=== PATIENT | female | born 1985 | race Caucasian/White ===

== ENCOUNTER 2020-01-21 11:37 | Emergency (ER) | payer OTHER, MEDICAID, SELFPAY ==
[2020-01-21 11:43] VITALS: BP 128/95; PULSE 88; RESP 12; TEMP 36.6; O2SAT 97
--- NOTE | 2020-01-21 11:45 | ED.EAR ---
HPI - Ear Problem <Radha Daley PA-C - Last Filed: 01/21/20 17:06> General Chief complaint: Ear Stated complaint: Excruciating pain in L ear Time Seen by Provider: 01/21/20 11:44 Source: patient Mode of arrival: Ambulatory Limitations: no limitations History of Present Illness HPI Narrative: This 34-year-old female comes to ED secondary to excruciating left ear pain onset early this morning, she has more mild right ear pain. She has a history of recurrent otitis media even as an adult. She states that she has had multiple ear surgeries. She states that for the last few days she has been working on pulling of carpet and cleaning and a new house, and has had some typical allergy symptoms with sinus drainage, watery burning eyes, runny nose. She thinks her ear may have been draining a little clear fluid earlier, noted on Q-tip. She has not had any fever, cough, dyspnea, known exposures. She states she came here because unable to get appointment with her PCP. She uses NuvaRing reliably and denies possibility of . Related Data Previous Rx's Medication Instructions Recorded amoxicillin-pot clavulanate 1 tab PO Q12H #20 tab 01/21/20 [Augmentin] ibuprofen 800 mg PO Q8H PRN #30 tab 01/21/20 Review of Systems <Radha Daley PA-C - Last Filed: 01/21/20 17:06> Review of Systems ROS Unobtainable: All systems reviewed & are unremarkable except as noted in HPI and below Patient History <Radha Daley PA-C - Last Filed: 01/21/20 17:06> Medical History Migraine headache (Chronic) Recurrent otitis media (Chronic) Surgical History History of tonsillectomy and adenoidectomy (Resolved) S/P ear surgery (Resolved) Social History Smoking Status: Never smoker Exam <Radha Daley PA-C - Last Filed: 01/21/20 17:06> Narrative Exam Narrative: GENERAL APPEARANCE: Patient resting, appears uncomfortable but in NAD HEAD: No sinus TTP. EYES: PERRL, EOMI. EARS: Normal auditory canals, TMS intact, right with dull light reflex, left retracted, erythematous ORAL CAVITY: Normal oropharynx THROAT: No erythema or exudate, PND noted NECK/THYROID: Neck supple, full range of motion, tender submandibular cervical lymphadenopathy. LUNGS: Clear to auscultation bilaterally, no cough on exam. HEART: RRR without murmur, nl S1, S2, no S3 or S4. Initial Vital Signs Initial Vital Signs: Vital Signs Temperature 97.9 F 01/21/20 11:43 Pulse Rate 88 01/21/20 11:43 Respiratory Rate 12 01/21/20 11:43 Blood Pressure 128/95 H 01/21/20 11:43 Pulse Oximetry 97 01/21/20 11:43 <Oscar Kennedy DO - Last Filed: 01/21/20 17:13> Initial Vital Signs Initial Vital Signs: Vital Signs Temperature 97.9 F 01/21/20 11:43 Pulse Rate 88 01/21/20 11:43 Respiratory Rate 12 01/21/20 11:43 Blood Pressure 128/95 H 01/21/20 11:43 Pulse Oximetry 97 01/21/20 11:43 Course <Radha Daley PA-C - Last Filed: 01/21/20 17:06> Vital Signs Vital signs: Vital Signs - 8 hr 01/21/20 11:43 Temperature 97.9 F Pulse Rate 88 Respiratory Rate 12 Blood Pressure 128/95 H Pulse Oximetry 97 <DO Watson Sr Last Filed: 01/21/20 17:13> Vital Signs Vital signs: Vital Signs - 8 hr 01/21/20 11:43 Temperature 97.9 F Pulse Rate 88 Respiratory Rate 12 Blood Pressure 128/95 H Pulse Oximetry 97 Discharge Plan Departure Patient Disposition: Home Clinical Impression: Otitis media Qualifiers: Otitis media type: unspecified Chronicity: acute Qualified Code(s): H66.90 - Otitis media, unspecified, unspecified ear Discharge Date/Time: 01/21/20 12:20 Instructions: Middle Ear Infection Activity Restrictions/Additional Instructions: Your left ear appears to be infected today, similar to your previous infections. These are often caused by viruses, however in patient like you have had multiple frequent bacterial infections, it is reasonable to treat with antibiotics so I have prescribed Augmentin for you as you have had in the past. Please start this as soon as you pick it up, along with ibuprofen every 8 hours as needed for pain. You can add Tylenol to this as needed. Return as we discussed if you have any acutely worsening symptoms or new symptoms such as high fever, breathing difficulties, hearing loss. Please follow-up with your PCP if this is not improving with antibiotics as expected. Prescriptions: New amoxicillin-pot clavulanate [Augmentin] 875-125 mg tablet 1 tab PO Q12H Qty: 20 RF: 0 ibuprofen 800 mg tablet 800 mg PO Q8H PRN (Reason: ear pain) Qty: 30 RF: 0 Referrals: Leonel Reed MD [Primary Care Provider] - ED Sign-out <Radha Daley PA-C - Last Filed: 01/21/20 17:06> Cosign ED Attending Eunice Attestation: I was immediately available in the department for consultation. This documentation has been reviewed and I agree with assessment and plan. Supervised by Radha Daley PA-C <Oscar Kennedy DO - Last Filed: 01/21/20 17:13> Cosign ED Attending Eunice Attestation: Dr Kennedy Co-Sign Statement: I was available for consultation during this patient's emergency department visit. This chart is signed by myself for administrative purposes only. I did not have direct contact with this patient during this visit. They were seen independently by the APC.
== END 2020-01-21 12:20 | disposition home or self-care (01) ==
LOC: ED 12:06
PROVIDERS: Emergency Provider Internal Medicine; PCP Family Medicine
DX: H66.90 Otitis media, unspecified, unspecified ear (principal)
CPT/HCPCS: 99281

== ENCOUNTER → 2020-07-25 09:19 | Outpatient (CLI) | payer OTHER, MEDICAID, SELFPAY ==
--- NOTE | 2020-07-25 | PATH_ITS ---
Note [facility] Accession Number: [id number] TESTS RESULT FLAG UNITS REF RANGE LAB Clinician Provided Cytology Information No. of containers..00 Previously Prepared Cytology Slide 35 Unknown Storage/container code(s) [A] 01 RIGHT MID THYROID NO DIAGNOSIS: [A] 01 RIGHT MID THYROID NODULE, FINE NEEDLE ASPIRATION. SUSPICIOUS FOR MALIGNANCY. SUSPICIOUS FOR PAPILLARY CARCINOMA, BETHESDA CATEGORY V, SEE COMMENT. COMMENT: EXAMINATION OF THE SMEARS REVEALS A MILDLY CELLULAR ASPIRATE (WITH AREAS OF THICK SMEAR PREPARATION) COMPOSED OF GROUPS OF ATYPICAL CELLS WITH NUCLEAR ENLARGEMENT, OVERLAPPING AND NUCLEAR MEMBRANE IRREGULARITIES (GROOVES) WITHOUT DEFINITE INTRANUCLEAR PSEUDOINCLUSIONS SEEN. THE CYTOMORPHOLOGIC FEATURES ARE SUSPICIOUS FOR PAPILLARY CARCINOMA. RESULTS WERE CALLED TO Jesús MILAN, ON 07/29/2020, AT 10:15 AM. Pathologist ICD10: 01 E04.1 01 Vanessa Wheat MD, Pathologist NPI- [id number] 01 Latrell Benson, [employer] Leak Tester ([facility]) 01 30 CC, PINK, CLEAR RECIEVED: IN CYTOLYT WITH 5 ALCOHOL FIXED AND 5 QUICK STAINED SLIDES ALSO 1 RNA VIAL WAS RECEIVED FOR FURTHER TESTING. /VDU 07/28/2020 1056 [facility] FLAG LEGEND: L-Low Normal,H-High Normal,LL-Alert Low,HH-Alert High <-Panic Low,>-Panic High,A-Abnormal,AA-Critical Abnormal Performed at: 01 =Z [facility] [address] [place] [address], [place] [address] Louis Franco MD, Performed at: [address] [place] [address], [place], [place] [id number] MD Louis Franco MD Phone: [phone]
--- NOTE | 2020-07-25 | DI.US.S_ITS ---
PROCEDURE: US FINE NEEDLE ASPIRATION INDICATIONS: FNA RIGHT THYROID NODULE TECHNIQUE: The indications, alternatives, benefits, risks, and complications of the procedure were explained to the patient. Written informed consent was obtained and placed in the chart. The thyroid region was examined sonographically and a site was chosen for ultrasound guided percutaneous sampling. The skin was prepared and draped in the usual fashion, and anesthetized with 1% lidocaine infiltrated from the skin down to the thyroid gland. Multiple passes were then performed, with contents emptied into an appropriate pathology specimen container. A bandage was applied to the area of access at completion of the study. COMPARISON: [facility], , US SOFT TISSUE HEAD OR NECK, 06/03/2020, 14:46. FINDINGS: Location(s) of lesion(s) sampled: 1.1 x 0.7 x 1.1 centimeter mid right thyroid nodule [place]: 25 gauge hypodermic needles. Number of passes: 5 Medications: 1% lidocaine for local anaesthesia. Complications: None. IMPRESSION: Successful ultrasound-guided thyroid nodule fine needle aspiration, with cytology results pending. Please see chart below for management recommendations based on cytology results. [place] [facility] ReportingRecommendationsNon-diagnostic* Repeat US-guided FNA, with on-site cytology evaluation if possible. * Repeated non-diagnostic nodules without high suspicion US features: close observation vs surgical consult. * Consider surgery if nodule has high suspicion US features, grows >20% in 2 dimensions on followup, or patient has clinical risk factors for malignancy. Benign* If nodule has high suspicion US features: repeat US and FNA within 12 months. * If nodule has low to intermediate suspicion US features: repeat US at 12-24 months. If nodule grows (20% increase in at least 2 dimensions, with minimal increase of 2 mm or >50% change in volume), or development of new suspicious US features, then repeat FNA or continue followup. * If nodule has very low suspicion US features: followup US at >24 months. Atypia of undetermined significance, follicular lesion of undetermined significanceRepeat FNA, molecular testing, followup US, or surgical consult.Follicular neoplasm, suspicious for follicular neoplasmSurgical consult; also consider molecular testing. Suspicious for malignancySurgical consult.MalignantSurgical consult. Dictated by: Caryl Bradley MD, PhD on 07/25/2020 at 11:53 Approved by: Caryl Bradley MD, PhD on 07/25/2020 at 11:54
== END ==
PROVIDERS: PCP Family Medicine; Referring Provider Family Medicine; Visit Provider Otolaryngology
DX: E04.1 Nontoxic single thyroid nodule (principal)
CPT/HCPCS: 10005

== ENCOUNTER → 2020-12-24 10:07 | Outpatient (CLI) | payer OTHER, MEDICAID, SELFPAY ==
[2020-12-24 11:19] LABS: COVID19 -Nasal RAPID Negative (Negative)
== END ==
PROVIDERS: PCP Family Medicine; Visit Provider Physician Assistant
DX: Z01.812 Encounter for preprocedural laboratory examination (principal); Z20.822 Contact with and (suspected) exposure to COVID-19
CPT/HCPCS: 87635

== ENCOUNTER 2020-12-25 06:47 | Day surgery (SDC) | payer OTHER, MEDICAID, SELFPAY ==
[2020-12-25] VITALS (9 sets, daily range): BP systolic 106–137; BP diastolic 73–92; PULSE 62–84; RESP 12–94; TEMP 36.3–37.1; O2SAT 12–96; BMI 26.2
--- NOTE | 2020-12-25 | PATH_ITS ---
[facility] Accession Number: [id number] . 01 Material submitted: . PART A: THYROID - RIGHT THYROID LOBE PART B: THYROID - LEFT THYROID LOBE . 02 Diagnosis: A. 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 Please see [facility] Cancer Case Summary below. . B. 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 Please see Cancer Case Summary below. . CANCER CASE SUMMARY - THYROID GLAND . Procedure: Right lobectomy and left lobectomy. Tumor focality: Multiple foci. Tumor site: Right lobe, left lobe. Tumor size: 1.1 cm, Right mid lobe 0.6 mm, Right upper lobe less than 0.5 mm, Left mid lobe Histologic type: Papillary carcinoma, conventional type. Margins: Uninvolved by carcinoma. Distance of invasive carcinoma from closest margin: 0.5 mm, right posterior. Angioinvasion: Not identified. Lymphatic invasion: Not identified. Perineural invasion: Not identified. Extrathyroidal extension: Not identified. Regional lymph nodes: No lymph nodes submitted or found. . Pathologic stage classification (AJCC 8th Edition): TNM descriptors: m (multiple primary tumors) Primary tumor: pT1b. Regional lymph nodes: pNX. . Additional pathologic findings: Parathyroid glands present: Two left parathyroid glands present. MRV 12/31/2020 1506 Local . 02 Comment: As part of routine quality nurse, this case was also reviewed by Dr. Veloz, who agrees with the diagnosis. Dr. San gave preliminary results to Dr. May on 12/31/2020 at 11:10 a.m. . 02 Electronically signed: . Minnie San MD, Pathologist NPI- [id number] . 01 Gross description: . A. The specimen is received in formalin, labeled right thyroid lobe, and consists of a 12 g, 6.0 x 3.0 x 2.0 cm right hemithyroidectomy specimen with a 1.0 x 0.7 x 0.6 cm portion of attached isthmus. The external surface is waddell-pink with fibrinous adhesions. The specimen is inked as follows: Anterior blue, posterior black, isthmus yellow. The specimen is serially sectioned to reveal a 1.1 x 0.8 x 0.8 cm, firm, waddell-white, well circumscribed nodule within the mid pole, within 0.1 cm of the posterior margin, 0.2 cm from the anterior margin and greater than 2 cm from the isthmic margin. The remaining cut surfaces are red-brown and reticulated. Exhibitions And Collections Manager sections are submitted. A1: Isthmic margin, perpendicularly sectioned. A2-A3: Nodule, entirely submitted. A4-A5: Exhibitions And Collections Manager upper and lower pole. A6-A8: Remainder of upper pole. B. The specimen is received in formalin, labeled left thyroid lobe, and . consists of a 15 g left hemithyroidectomy specimen measuring 5.0 x 2.5 x 2.0 cm with attached isthmus measuring 3.0 x 2.0 x 1.2 cm. The external surface is pink-purple with fibrous adhesions and a 2.0 x 1.5 cm area of disruption along the lateral, mid/inferior portion of the left thyroid. The specimen is inked as follows: Anterior blue, posterior black, isthmus yellow, and area of disruption orange. The specimen is serially sectioned to reveal red-brown reticulated cut surfaces. Exhibitions And Collections Manager sections are submitted. B1: Upper pole. B2: Mid pole with area of disruption. B3: Lower pole. B4: Isthmus. EA:[id number]) B5-B9: Remainder of mid thyroid. (EA:[id number]) /FRDi 12/31/2020 1506 Local . 02 Pathologist provided ICD-10: C73 . 02 CPT . 834918, [id number] Performed at: [address] [facility][note 3], [place], [place] [id number] MD Louis Franco MD Phone: [phone] Performed at: 02 [facility] [place] [address] [place] [id number] MD Minnie San MD Phone: [phone]
[2020-12-25] MEDS: LACTATED RINGERS 1,000 ML 42 ML IV ×2 (07:13→09:02)
--- NOTE | 2020-12-25 07:36 | PM.PREOP ---
Pre-operative Note COVID-19 COVID-19 status: Result pending Interval Note History & Physical reviewed/Exam performed by Physician: Yes Changes to H&P: No
[2020-12-25] MEDS: APREPITANT 40 MG CAPSULE PO (07:50)
[2020-12-25] MEDS: ACETAMINOPHEN 325 MG TABLET 975 MG PO (07:50)
[2020-12-25] MEDS: LIDOCAINE 1% W/EPI 20 ML INJ (08:28)
--- NOTE | 2020-12-25 08:30 | SUR.OPER ---
Supine on padded OR bed, head on gel donut, arm padded and tucked at side, legs uncrossed, safety belt at thigh, tape over blanket over lower legs. Rolled towels X3 horizontally placed under shoulders.
[2020-12-25] MEDS: BACITRACIN OINT 0.9 GM PCKT 1 APPLIC TOP (10:19)
--- NOTE | 2020-12-25 10:41 | P.OP_ITS ---
Operative Date/Time/Diagnoses Date of procedure: 12/25/20 Time of procedure: 10:42 Pre-op diagnosis: Right thyroid nodule, suspicious for malignancy Post-op diagnosis: same Procedure & Clinicians Procedure: Total thyroidectomy Same procedure as scheduled: Yes Indications: 35-year-old female with Logan category 5 FNA of right 1.1 cm thyroid nodule presents for total thyroidectomy. Following discussion of the material risks benefits complications and alternatives, the patient elected to proceed. Surgeon: Charlie May [employer] Operator: João Jama Click Yes if Unassisted: No Anesthesia Type: General Operative Notes Findings: Right and left thyroid lobes sent as separate specimens for permanent sections. Palpable 1 cm firm nodule right superior lobe. No visible parathyroid tissue on each specimen. Probable pyramidal lobe of the left isthmus. Bilateral recurrent laryngeal nerves identified and traced to the cricothyroid joint. Increased vasculature left superior thyroid pole. Closure Type: primary Specimen(s): other Estimated Blood Loss (mL): 30 Procedure in detail: Following identification and confirmation of consent, she was brought to the operating room suite and general endotracheal anesthesia was administered. A shoulder roll was placed for neck extension. A transverse skin incision was marked prior to neck extension, approximately 2 fingerbreadths superior to the sternal notch. This was widely infiltrated with 1% lidocaine 1 100,000 epinephrine, followed by sterile prep and drape. Fifteen blade incised the skin and subcutaneous tissue, and then the platysma was incised in a separate layer. The midline raphe a of the strap muscles was identified and incised and the strap muscles were elevated sharply and bluntly off of the thyroid gland. I did NOT specifically elevate subplatysmal flaps. Beginning on the patient's right side sharp and blunt dissection proceeded laterally and inferiorly along the capsule of the thyroid gland with hemostasis via bipolar cautery. The inferior pole vessels were individually identified and clipped. The recurrent laryngeal nerve was identified and traced superiorly to the cricothyroid joint. Probable parathyroid tissue was identified inferiorly and left in situ. The middle thyroid vein was taken down with cautery and the superior pole vessels were then dissected free and individually clipped. The left thyroid lobe was resected after transecting nunn's ligament and transecting the isthmus. The left thyroid lobe was then dissected beginning laterally where ligating the middle thyroid vein. Dissection proceeded inferiorly on the capsule and possible parathyroid tissue was left in-situ as the inferior pole vessels were individually identified and clipped. Lateral and superior dissection was performed with traction performed BiPAP cup forceps on the gland. The superior pole vessels were numerous and there was some mild bleeding eventually controlled with numerous clips and bipolar cautery. The left recurrent laryngeal nerve was identified and traced to the cricothyroid joint and then Alden's ligament was transected and the gland was removed after dissecting a pyramidal lobe superiorly. The superior parathyroid was not definitively identified but there was no parathyroid tissue visible on each specimen at completion. The wound was irrigated with saline and a single stitch centrally reapproximated the central portion of the strap muscles. I then closed the platysma in a separate layer with interrupted 4 0 Vicryl followed by subcutaneous layer and finally a running 5 0 nylon for the skin. Antibiotic ointment and a dressing was applied. Sponge and needle counts were correct. She was extubated in the operating room deeply, and taken to recovery room in stable condition without known complication. Complications: none Post-operative Condition: stable Disposition: same day surgery Plan for aftercare: DC home under care of family, follow-up in 7-10 days as scheduled, Vaseline or Polysporin ointment to the incision at all times. Tums t.i.d. for the 1st week, then twice daily for the next week, then daily for the following. Begin levothyroxine 112 mcg daily as scheduled. Tylenol and Advil for pain control, possible oxycodone if necessary.
[2020-12-25] MEDS: BENZOCAINE/MENTHOL 1 LOZ PKT 1 EACH PO ×2 (10:55→12:18)
[2020-12-25] MEDS: HYDROMORPHONE 2 MG INJ IV ×2 (10:56→11:05)
[2020-12-25] MEDS: hydrOXYzine 50 MG/ML INJ 25 MG IM (11:14)
[2020-12-25] MEDS: OXYCODONE IR 5 MG TABLET PO ×2 (11:16→12:18)
--- NOTE | 2020-12-25 11:34 | SUR.PHASEI ---
Pt received to PACU after general anesthesia. Airway patent, self maintained. Report from Dr Demian Guevara RN. Pt able to annunciate E, voice clear with no hoarseness.
--- NOTE | 2020-12-25 12:28 | SUR.PHASEII ---
See Mar for update to medications administered. Pt vital signs are stable, she is dressed and waiting for her mother to arrive. Recommend that discharge instructions be reviewed with mother.
== END 2020-12-25 13:10 | disposition home or self-care (01) ==
LOC: OR 06:49 → AC 10:55 → OR 11:01
PROVIDERS: PCP Family Medicine; Referring Provider Otolaryngology; Visit Provider Otolaryngology
PROC: (CPT 60240; principal; 2020-12-25 07:45)
DX: C73 Malignant neoplasm of thyroid gland (principal); G43.909 Migraine, unspecified, not intractable, without status migrainosus
CPT/HCPCS: 60240; 81025; J0330; J1100; J1170; J2250; J2405; J2704; J3010; J3410; J8501

== ENCOUNTER 2021-07-12 11:22 | Emergency (ER) | payer OTHER, MEDICAID, SELFPAY ==
[2021-07-12 11:38] VITALS: BP 137/87; PULSE 80; RESP 19; TEMP 36.5; O2SAT 100; BMI 22.9
--- NOTE | 2021-07-12 13:44 | ED.ALLEREA ---
HPI - Allergic Reaction <Minnie Noland, [facility] - Last Filed: 07/12/21 15:39> General Chief complaint: Allergic Reaction Stated complaint: HIVES, SWELLING ALL OVER Time Seen by Provider: 07/12/21 13:21 Source: patient Mode of arrival: Family Vehicle Limitations: no limitations History of Present Illness HPI narrative: 35-year-old female presents to the ED for hives and urticaria that started last night. She reports that she broke out and highs and they have covered her whole body except for her mouth area. The most distressing symptom is itching. She does not know what the trigger was. 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 She denies any new detergents, fragrances, lotions, foods, meds, or changes at home. She denies that this has ever happened before. She denies any respiratory distress, oral swelling, cough, nausea, vomiting, or diarrhea. Known history of allergy to: None Symptoms: rash and itching Severity: moderate Treatment prior to arrival: benadryl (last dose at 0145) Related Data Home Medications Medication Instructions Recorded Confirmed diphenhydramine HCl 25 mg PO PRN PRN 12/22/20 12/25/20 etonogestrel 0.12 mg-ethinyl 1 vag ring VAGINAL Q3W 12/22/20 12/25/20 estradiol 0.015 mg/24 hr vaginal ring ibuprofen 800 mg tablet 800 mg PO Q8H PRN 12/22/20 12/25/20 methocarbamol 500 mg tablet 500 mg PO PRN PRN 12/22/20 12/25/20 promethazine 25 mg tablet 25 mg PO Q6H PRN 12/22/20 12/25/20 sumatriptan succinate 25 mg tablet 25 mg PO SEEINSTR PRN 12/22/20 12/25/20 sumatriptan succinate 50 mg tablet 50 mg PO SEEINSTR PRN 12/22/20 12/22/20 topiramate 25 mg tablet 12.5 mg PO BID 12/22/20 12/22/20 Previous Rx's Medication Instructions Recorded cetirizine 10 mg capsule (Zyrtec) 10 mg PO DAILY PRN #10 cap 07/12/21 prednisone 20 mg tablet 40 mg PO DAILY 5 Days #10 tab 07/12/21 Allergies Allergy/AdvReac Type Severity Reaction Status Date / Time acetaminophen [From Vicodin] AdvReac Unknown Abdominal Verified 07/12/21 11:42 pain, liver/kidneys hydrocodone [From Vicodin] AdvReac Unknown Abdominal Verified 07/12/21 11:42 pain, liver/kidneys Review of Systems <CHARLY Miranda - Last Filed: 07/12/21 15:39> Review of Systems Narrative: General: denies fever, chills Head/Neck: denies headache, neck pain Eyes: denies visual changes, eye pain Cardio: denies chest pain, palpitations Respiratory: denies shortness of breath, cough GI: denies abdominal pain, nausea, vomiting, or diarrhea : denies dysuria, hematuria MSK: denies joint pain, muscle weakness Skin: itchy hives from neck to ankles, sparing face/mouth Neuro: denies numbness, tingling Patient History <CHARLY Miranda - Last Filed: 07/12/21 15:39> Medical History Adenopathy Allergic rhinitis Anemia Anxiety Chronic migraine Conductive hearing loss in left ear Depression Dizziness Eustachian tube dysfunction Fatigue Hearing loss Migraine headache Recurrent otitis media Thyroid nodule Tinnitus Surgical History History of tonsillectomy and adenoidectomy S/P ear surgery S/P thyroid biopsy Social History household members: significant other and children Smoking Status: Former smoker alcohol intake: never Smoking Status: Former smoker tobacco type: cigars alcohol intake frequency: holidays/special occasions only Substance Use Type: marijuana Exam <CHARLY Miranda - Last Filed: 07/12/21 15:39> Narrative Exam Narrative: Independently reviewed vitals signs and nursing notes. General: Awake, alert, nontoxic, no cardiorespiratory distress Head/Neck: Atraumatic, neck full range of motion Eyes: EOMI, conjunctiva normal Nose: nares patent, no rhinorrhea Mouth/Throat: moist mucus membranes, posterior pharynx normal, no oral lesions, no oral swelling, no tonsils, no uvula swelling, no lip or facial rash or swelling Cardio: Regular rate and rhythm, no peripheral edema Respiratory: Breath sounds are clear throughout respirations unlabored without wheezing, stridor, or rales. No retractions. GI: Abdomen soft, nontender MSK: Moves all extremities, neurovascularly intact Skin: Normal capillary refill, From neck to ankles: raised pruritic plaques and urticarial round lesions, erythematous patches Neuro: Normal speech and cognition, normal gait Initial Vital Signs Initial Vital Signs: Vital Signs Temperature 97.7 F 07/12/21 11:38 Pulse Rate 80 07/12/21 11:38 Respiratory Rate 19 07/12/21 11:38 Blood Pressure 137/87 07/12/21 11:38 Pulse Oximetry 100 07/12/21 11:38 <Oscar Kennedy DO - Last Filed: 07/12/21 15:44> Initial Vital Signs Initial Vital Signs: Vital Signs Temperature 97.7 F 07/12/21 11:38 Pulse Rate 80 07/12/21 11:38 Respiratory Rate 07/12/21 11:38 Blood Pressure 137/87 07/12/21 11:38 Pulse Oximetry 100 07/12/21 11:38 Course <CHARLY Miranda - Last Filed: 07/12/21 15:39> Orders Ordered: Discontinued Medications Calamine (Calamine/Zinc Oxide Lotion 180 Ml) 1 applic TOP NOW ONE Stop: 07/12/21 14:43 Last Admin: 07/12/21 15:06 Dose: 1 applic Documented by: [email or web address] Diazepam (Diazepam 5 Mg Tablet) 5 mg PO NOW ONE Stop: 07/12/21 15:31 Diphenhydramine HCl (Diphenhydramine 25 Mg Tablet) 25 mg PO NOW ONE Stop: 07/12/21 14:43 Last Admin: 07/12/21 14:48 Dose: 25 mg Documented by: [email or web address] Famotidine (Famotidine 20 Mg Tablet) 20 mg PO NOW ONE Stop: 07/12/21 14:46 Last Admin: 07/12/21 14:48 Dose: 20 mg Documented by: [email or web address] Hydroxyzine Pamoate (Hydroxyzine Pamoate 25 Mg Capsule) 25 mg PO NOW ONE Stop: 07/12/21 13:43 Last Admin: 07/12/21 14:01 Dose: 25 mg Documented by: [email or web address] Prednisone (Prednisone 20 Mg Tablet) 40 mg PO NOW ONE Stop: 07/12/21 13:43 Last Admin: 07/12/21 14:02 Dose: 40 mg Documented by: PALAK Vital Signs Vital signs: Vital Signs - 8 hr 07/12/21 11:38 Temperature 97.7 F Pulse Rate 80 Respiratory Rate 19 Blood Pressure 137/87 Pulse Oximetry 100 <Oscar Kennedy DO - Last Filed: 07/12/21 15:44> Orders Ordered: Discontinued Medications Calamine (Calamine/Zinc Oxide Lotion 180 Ml) 1 applic TOP NOW ONE Stop: 07/12/21 14:43 Last Admin: 07/12/21 15:06 Dose: 1 applic Documented by: CTREMANUEL Diazepam (Diazepam 5 Mg Tablet) 5 mg PO NOW ONE Stop: 07/12/21 15:31 Diphenhydramine HCl (Diphenhydramine 25 Mg Tablet) 25 mg PO NOW ONE Stop: 07/12/21 14:43 Last Admin: 07/12/21 14:48 Dose: 25 mg Documented by: CTREMANUEL Famotidine (Famotidine 20 Mg Tablet) 20 mg PO NOW ONE Stop: 07/12/21 14:46 Last Admin: 07/12/21 14:48 Dose: 20 mg Documented by: [email or web address] Hydroxyzine Pamoate (Hydroxyzine Pamoate 25 Mg Capsule) 25 mg PO NOW ONE Stop: 07/12/21 13:43 Last Admin: 07/12/21 14:01 Dose: 25 mg Documented by: CTREMANUEL Prednisone (Prednisone 20 Mg Tablet) 40 mg PO NOW ONE Stop: 07/12/21 13:43 Last Admin: 07/12/21 14:02 Dose: 40 mg Documented by: PALAK Vital Signs Vital signs: Vital Signs - 8 hr 07/12/21 11:38 Temperature 97.7 F Pulse Rate 80 Respiratory Rate 19 Blood Pressure 137/87 Pulse Oximetry 100 MDM - Allergic Reaction <CHARLY Miranda - Last Filed: 07/12/21 15:39> Lab Data Labs: Point of Care Testing Test Results Negative MDM Narrative Medical decision making narrative: 35-year-old female presents to the ED for whole-body hives that started last night. She has urticaria with an unknown cause. She denies any new fragrances, detergents, lotions, exposures, foods, or known allergies. This is most likely urticaria without anaphylaxis caused by an unknown allergen. 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 She has no periorbital swelling, no oropharyngeal swelling, no difficulty swallowing, no nausea or vomiting. Patient was instructed to follow-up with her PCP in 1 week if not resolved and to return to the ED for any new or worsening symptoms including shortness of breath, swelling of her mouth her tongue, and chest pain. Patient is appropriate and amenable to discharge home. Vital signs are stable on repeat examination is unremarkable. Patient has been informed of results. Patient has been given strict return to ER precautions for any new or worsening symptoms. Patient understands to follow up closely with outpatient providers as instructed. Patient understands plan and agrees to discharge home. All questions and concerns answered at this time. <Oscar Kennedy, DO - Last Filed: 07/12/21 15:44> Lab Data Labs: Point of Care Testing Test Results Negative Discharge Plan Departure Patient Disposition: Home Clinical Impression: Urticaria Instructions: DI for Hives Activity Restrictions/Additional Instructions: *You have been diagnosed with urticaria without anaphylaxis, with an unknown cause. If this does not improve over the next couple of days with medications, see your PCP for referral to an [employer] senior officer who might be able to better solve what the cause is. *What to do: *Please continue to take your regular medications as directed. x New medication prescriptions sent to your pharmacy: [[facility] in [place] ] [ ] New medication written as a paper prescription [] No new medications given *Please follow up with your primary care provider in 2-3 days, call for an appointment. Let them know you were seen in the Emergency Department and that we ask that you be seen in follow up. We will electronically transmit a record of today's note if your PCP is in our system *If you do not have a primary care provider please contact the [facility] Resource line at [phone]. They will ask some questions about your medical history and help get you set up with a doctor in the community. *Return to Emergency Department if you should have any new, worsening or concerning symptoms, such as [fever greater than 101F, chills, worsening pain, persistent vomiting or other bothersome symptoms] Prescriptions: New prednisone 20 mg tablet 40 mg PO DAILY 5 Days Qty: 10 RF: 0 Zyrtec 10 mg capsule 10 mg PO DAILY PRN (Reason: allergy symptoms) Qty: 10 RF: 0 No Action methocarbamol 500 mg Tablet 500 mg PO PRN PRN (Reason: Migraine Headache) RF: 0 sumatriptan succinate 25 mg tablet 25 mg PO SEEINSTR PRN (Reason: Migraine Headache) RF: 0 sumatriptan succinate 50 mg Tablet 50 mg PO SEEINSTR PRN (Reason: Migraine Headache) RF: 0 topiramate 25 mg Tablet 12.5 mg PO BID RF: 0 promethazine 25 mg Tablet 25 mg PO Q6H PRN (Reason: nausea & vomiting) RF: 0 etonogestrel-ethinyl estradiol 0.12-0.015 mg/24 hr ring 1 vag ring VAGINAL Q3W RF: 0 diphenhydramine HCl 25 mg PO PRN PRN (Reason: Migraine Headache) RF: 0 ibuprofen 800 mg tablet 800 mg PO Q8H PRN (Reason: pain or inflammation) RF: 0 Referrals: Leonel Reed MD [Primary Care Provider] - Stand Alone Forms: Work Release Note <Oscar Kennedy DO - Last Filed: 07/12/21 15:44> [facility] [place] Attestation: Dr Kennedy Co-Sign Statement: I was available for consultation during this patient's emergency department visit. This chart is signed by myself for administrative purposes only. I did not have direct contact with this patient during this visit. They were seen independently by the APC.
[2021-07-12] MEDS: hydrOXYzine pamoate 25 MG CAPSULE PO (14:01)
[2021-07-12] MEDS: predniSONE 20 MG TABLET 40 MG PO (14:02)
[2021-07-12] MEDS: diphenhydrAMINE 25 MG TABLET PO (14:48)
[2021-07-12] MEDS: FAMOTIDINE 20 MG TABLET PO (14:48)
[2021-07-12] MEDS: ZINC OXIDE TOP (15:06)
[2021-07-12] MEDS: CALAMINE TOP (15:06)
--- NOTE | 2021-07-12 15:07 | PC.NURSE ---
Pt is scratching her skin each time staff enter the room. Instructed that this is making it worse, and to try to sop if possible. Pt given gloves to wear to aid in refraining, and cold wash cloths applied to neck and chest. Son at bedside has been provided snacks.
[2021-07-12] MEDS: diazePAM 5 MG TABLET PO (15:49)
[2021-07-12 16:27] VITALS: BP 108/72; PULSE 69; RESP 19; O2SAT 99
== END 2021-07-12 16:28 | disposition home or self-care (01) ==
PROVIDERS: Emergency Provider Nurse Practitioner Critical Care Medicine; PCP Family Medicine
DX: L50.9 Urticaria, unspecified (principal)
CPT/HCPCS: 81025; 99283; A9270

== ENCOUNTER 2022-09-19 18:18 | Emergency (ER) | payer OTHER, MEDICAID, SELFPAY ==
[2022-09-19 18:58] VITALS: BP 114/76; PULSE 90; RESP 20; TEMP 36.4; O2SAT 97; BMI 26.6
--- NOTE | 2022-09-19 19:46 | PC.NURSE ---
CO monitor reads 0%.
[2022-09-19] MEDS: KETOROLAC 30 MG/ML VIAL IM (19:56)
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
[2022-09-19] MEDS: SUMAtriptan 6 MG/0.5 ML VIAL SUBCUT (20:26)
[2022-09-19 20:32] VITALS: BP 135/77; PULSE 78; RESP 16; O2SAT 99
== END 2022-09-19 20:33 | disposition home or self-care (01) ==
PROVIDERS: Emergency Provider Emergency Medicine; Family Provider Nurse Practitioner; PCP Nurse Practitioner
DX: G43.909 Migraine, unspecified, not intractable, without status migrainosus (principal); T59.811A Toxic effect of smoke, accidental (unintentional), initial encounter
CPT/HCPCS: 96372; 99283; J1885; J3030

== ENCOUNTER 2023-05-28 01:29 | Emergency (ER) | payer OTHER, MEDICAID, SELFPAY ==
[2023-05-28 01:38] VITALS: BP 119/87; PULSE 62; RESP 16; TEMP 35.8; O2SAT 100; BMI 29.4
--- NOTE | 2023-05-28 03:24 | ED.DENTAL ---
HPI - Dental/Oral General Chief complaint: Dental/Oral Stated complaint: Lower Right wisdom tooth post op pain Time Seen by Provider: 05/28/23 03:20 Source: patient Mode of arrival: Ambulatory Limitations: no limitations History of Present Illness HPI Narrative: This is a 37-year-old female with history of migraines, ADHD who presents with complaint of dental pain in her right posterior jaw after having her wisdom tooth extracted on the , she states she was having persistent pain saw the dental surgeon on the had packing placed, she states they also irrigated which she had not been doing at home. She states she was not sent home with a syringe and had impacted food in the socket. She states they place the packing and pain was slowly worsening over time she irrigated Tuesday evening and the packing fell out and pain continues to increase. She noticed a little bit of swelling at the site she noticed a small black spot on the inside, patient states her a lymph nodes. No enlarged. She states no fevers, she is had some nausea but no vomiting, she is had increasing pain. She was prescribed hydromorphone but states that has not been adequate for pain control. She has noted a little bit of drainage from the site. No swelling of her lips tongue or airway, she is slightly hoarse but has also had some nasal congestion even before the surgery. She was on an antibiotic before the wisdom tooth extraction and completed that, she was told she had some infection at the site prior to her surgery. Patient has had prior tonsils and adenoids and ear surgery. She does get Botox injections for migraines. Former tobacco, alcohol, marijuana but no recreational drugs. Patient states hydrocodone makes her ill but she can tolerate Tylenol. She also received Tylenol 3 before which was not helpful and then received the stronger pain medication from her dental surgeon. Related Data Home Medications Medication Instructions Recorded Confirmed diphenhydramine HCl 25 mg PO PRN PRN Migraine Headache 12/22/20 12/25/20 etonogestrel 0.12 mg-ethinyl 1 vag ring vaginal Q3W 12/22/20 12/25/20 estradiol 0.015 mg/24 hr vaginal ring ibuprofen 800 mg tablet 800 mg PO Q8H PRN pain or 12/22/20 12/25/20 inflammation methocarbamol 500 mg tablet 500 mg PO PRN PRN Migraine Headache 12/22/20 12/25/20 promethazine 25 mg tablet 25 mg PO Q6H PRN nausea & vomiting 12/22/20 12/25/20 sumatriptan succinate 25 mg tablet 25 mg PO SEEINSTR PRN Migraine 12/22/20 12/25/20 Headache sumatriptan succinate 50 mg tablet 50 mg PO SEEINSTR PRN Migraine 12/22/20 12/22/20 Headache topiramate 25 mg tablet 12.5 mg PO BID 12/22/20 12/22/20 Previous Rx's Medication Instructions Recorded cetirizine 10 mg capsule (Zyrtec) 10 mg PO DAILY PRN allergy 07/12/21 symptoms #10 caps oxycodone-acetaminophen 5 mg-325 1 tab PO Q6H PRN pain #5 tabs 05/28/23 mg tablet (Percocet) penicillin V potassium 500 mg 500 mg PO QID #40 tabs 05/28/23 tablet penicillin V potassium 500 mg 500 mg PO QID #40 tabs 05/28/23 tablet Allergies Allergy/AdvReac Type Severity Reaction Status Date / Time acetaminophen [From Vicodin] AdvReac Unknown Abdominal Verified 09/19/22 19:02 pain, liver/kidneys hydrocodone [From Vicodin] AdvReac Unknown Abdominal Verified 09/19/22 19:02 pain, liver/kidneys Review of Systems Review of Systems ROS Unobtainable: All systems reviewed & are unremarkable except as noted in HPI and below Patient History Medical History Adenopathy Allergic rhinitis Anemia Anxiety Chronic migraine Conductive hearing loss in left ear Depression Dizziness Eustachian tube dysfunction Fatigue Hearing loss Migraine headache Recurrent otitis media Thyroid nodule Tinnitus Surgical History History of tonsillectomy and adenoidectomy S/P ear surgery S/P thyroid biopsy Social History household members: significant other and children Smoking Status: Former smoker alcohol intake: never Smoking Status: Former smoker tobacco type: cigars alcohol intake frequency: holidays/special occasions only Substance Use Type: marijuana Exam Narrative Exam Narrative: GEN: well nourished, well appearing female, alert and oriented x 3, patient appears to be in mild distress. HEENT: Atraumatic, pupils are equal round reactive to light, extraocular movements are intact, nares are clear, Throat is clear without any exudates, erythema, tonsillar enlargement or uvular deviation, no swelling of the face, tongue, lips or airway. Patient has some mild soft tissue swelling at the right posterior jaw where her molar was, there is no active drainage. There is a very small black dot on the inside unclear this is a food particle. No stridor, swallowing secretions without issue. HEART: Regular rate and rhythm without murmur, clicks, rubs. LUNGS:Lungs clear to auscultation, no wheezes, rales, crackles, chest moves symmetrically ABD:bowel sounds normal, soft, non-tender, no guarding, rebound, rigidity, no masses noted, no hepatosplenomegaly MSCL: Non-tender, no muscle atrophy, muscles strength 5/5 upper and lower extremities, full range of motion, normal gait NEURO:CN 2-12 intact, sensation normal SKIN: No rash, erythema or other skin changes Initial Vital Signs Initial Vital Signs: Vital Signs Temperature 96.4 F L 05/28/23 01:38 Pulse Rate 62 05/28/23 01:38 Respiratory Rate 16 05/28/23 01:38 Blood Pressure 119/87 05/28/23 01:38 Pulse Oximetry 100 05/28/23 01:38 Oxygen Delivery Method Room Air 05/28/23 01:38 Course Orders Ordered: Discontinued Medications Ketorolac Tromethamine (Ketorolac 30 Mg/Ml Vial) 30 mg IM NOW ONE Stop: 05/28/23 04:00 Last Admin: 05/28/23 04:06 Dose: 30 mg Documented By: Oxycodone/Acetaminophen (Oxycodone/Apap 5/325 Prepack) 1 bottle MISC SEEINSTR ONE Stop: 05/28/23 04:00 Last Admin: 05/28/23 04:06 Dose: 1 bottle Documented By: Penicillin V Potassium (Penicillin 250 Mg Tab Prepack) 1 bottle MISC SEEINSTR ONE Stop: 05/28/23 04:00 Last Admin: 05/28/23 04:06 Dose: 1 bottle Documented By: Vital Signs Vital signs: Vital Signs - 8 hr 05/28/23 01:38 Temperature 96.4 F L Pulse Rate 62 Respiratory Rate 16 Blood Pressure 119/87 Pulse Oximetry 100 Oxygen Delivery Method Room Air MDM - Dental/Oral MDM Narrative Medical decision making narrative: 37-year-old female likely develop dry socket after wisdom tooth extraction but may have developed infection as well. She states her packing has fallen out she is had slowly increasing pain the past 10 days. She states that the pain was increasing even before the packing fell out. Discussed continued to irrigate, we do not have packing available but do have eugenol/menthol topically. Was given written instructions from the package as well as a dose about how to use appropriately and keep away from children. Patient was given a shot of Toradol here in the department and prepack of or tablets of Percocet. Patient was discharged from the office with hydromorphone and we discussed this is a stronger pain medication. Can try an alternative. Patient was also asked to call her dental surgeon's office today to see if they can evaluate and replace the packing today. Discharge Plan Departure Patient Disposition: Home Clinical Impression: Pain, dental, H/O wisdom tooth extraction Activity Restrictions/Additional Instructions: Please call your dental surgeon this morning for follow-up. You likely have dry socket, continue to irrigate. You can use the topical pain medication provided as directed with a written instructions. Take antibiotics until completed or unless your dentist tells you to stop. You may take ibuprofen up to 800 mg every 8 hours. You may take Percocet 1 tablet every 6 hours as needed. This medication can make you sleepy do not drive, perform hazardous activities or make any major decisions while taking it. This medication will make you constipated please take a stool softener once to twice daily until stools are soft and regular. Prescription sent to [facility] in [place]. Please return for fevers swelling of your face, new color changes, redness, black discoloration of her gums, swelling of your tongue airway or mouth or other new or concerning changes Prescriptions: New penicillin V potassium 500 mg tablet 500 mg PO QID Qty: 40 0RF oxycodone-acetaminophen [Percocet] 5-325 mg tablet 1 tab PO Q6H PRN (Reason: pain) Qty: 5 0RF penicillin V potassium 500 mg tablet 500 mg PO QID Qty: 40 0RF No Action methocarbamol 500 mg Tablet 500 mg PO PRN PRN (Reason: Migraine Headache) sumatriptan succinate 25 mg tablet 25 mg PO SEEINSTR PRN (Reason: Migraine Headache) Patient Comments: TK 1 T PO AOS OF MIGRAINE. MAY REPEAT 1 T IN 1 HOUR PRN Rx Instructions: Take 1tablet at onset of migraine. May repeat 1 tab in 1 hour as needed sumatriptan succinate 50 mg Tablet 50 mg PO SEEINSTR PRN (Reason: Migraine Headache) Rx Instructions: take one tablet at onset of migraine - May repeat by one tablet after 2 hours if needed - not to exceed 2 tablets in 24 hours topiramate 25 mg Tablet 12.5 mg PO BID Rx Instructions: Start 12.5 mg BID for 1 week then 25 mb BID for 1 week then 50 mg promethazine 25 mg Tablet 25 mg PO Q6H PRN (Reason: nausea & vomiting) Rx Instructions: Take 1 tablet by mouth every 6 hours as needed for nausea or vomiting for up to 7 days etonogestrel-ethinyl estradiol 0.12-0.015 mg/24 hr ring 1 vag ring VAGINAL Q3W Rx Instructions: Into vagina and keep it in place for 3 weeks then repeat diphenhydramine HCl 25 mg PO PRN PRN (Reason: Migraine Headache) ibuprofen 800 mg tablet 800 mg PO Q8H PRN (Reason: pain or inflammation) Patient Comments: for migraine Zyrtec 10 mg capsule 10 mg PO DAILY PRN (Reason: allergy symptoms) Qty: 10 0RF Referrals: Darcy Aguayo ARNP [Primary Care Provider] - Stand Alone Forms: Patient Portal/API
[2023-05-28] MEDS: PENICILLIN 250 MG TAB PREPACK 1 BOTTLE MISC (04:06)
[2023-05-28] MEDS: KETOROLAC 30 MG/ML VIAL IM (04:06)
[2023-05-28] MEDS: OXYCODONE/APAP 5/325 PREPACK 1 BOTTLE MISC (04:06)
== END 2023-05-28 04:41 | disposition home or self-care (01) ==
PROVIDERS: Emergency Provider Emergency Medicine; Family Provider Nurse Practitioner; PCP Nurse Practitioner
DX: K08.89 Other specified disorders of teeth and supporting structures (principal); Z98.818 Other dental procedure status
CPT/HCPCS: 96372; 99283; J1885